=== PATIENT | female | born 1965 | race Caucasian/White ===

== ENCOUNTER 2018-06-27 02:11 | Emergency (ER) | payer OTHER ==
[~2018-06-27] VITALS: Ht 154.9 cm; Wt 61.2 kg
[2018-06-27] MEDS ORDERED: NEOMY/POLYMYX B/HC OPHT DROP 7.5 ML BOTTLE ONE (02:51)
[2018-06-27] MEDS ORDERED: HYDROCODONE/APAP 10-325 MG TABLET ONE (02:55)
--- NOTE | 2018-06-27 02:56 | NUR ---
Pt. ambulated into ED w/ c/o 01/29 R ear pain, A/Ox4, no CARTER/F/C/N/V
[2018-06-27] MEDS ORDERED: NEOMY/POLYMYX B/HC OTIC SUSP 10 ML BOTTLE ONE (02:58)
[2018-06-27] MEDS ORDERED: HYDROCODONE/APAP 10-325 MG TABLET PO ONE (03:00)
[2018-06-27] MEDS ORDERED: NEOMY/POLYMYX B/HC OTIC SUSP 10 ML BOTTLE OT ONE (03:00)
--- NOTE | 2018-06-27 03:57 | NUR ---
Patient discharged to home in stable conditon. Written and verbal after care instructions given. Patient verbalizes understanding of instructions. Pt. d/c per MD orders w/ prescriptions, d/c papers signed, all belongings w/ pt, ambulated out of ED w/ steady gait, no acute distress,
== END 2018-06-27 03:58 | disposition home or self-care (01) ==
LOC: ER 02:17
DX: H66.91 Otitis media, unspecified, right ear (principal); H60.91 Unspecified otitis externa, right ear; Z88.1 Allergy status to other antibiotic agents
CPT/HCPCS: A4663

== ENCOUNTER 2019-08-03 17:23 | Emergency (ER) | payer OTHER ==
[~2019-08-03] VITALS: Ht 165.1 cm; Wt 61.2 kg
--- NOTE | 2019-08-03 17:40 | NUR ---
Pt ambulated to ER with steady gait crying and c/o Right abdominal pain . Pt states its a new onset of pain. A/Ox4, no N/V present.
[2019-08-03] MEDS ORDERED: KETOROLAC TROMETHAMINE 30 MG INJ ONE (18:05)
[2019-08-03 18:14] LABS: BASOPHILS # (AUTO) 0.1 K/uL (0.0-8.0); BASOPHILS % (AUTO) 0.6 % (0.0-2.0); EOSINOPHILS # (AUTO) 0.1 K/uL (0.0-0.7); EOSINOPHILS % (AUTO) 0.3 % (0.0-7.0); HEMATOCRIT 40.5 % (31.2-41.9); HEMOGLOBIN 13.5 g/dL (10.9-14.3); LYMPHOCYTES # (AUTO) 1.2 K/uL (20.0-40.0); LYMPHOCYTES % (AUTO) 7.5 % (20.5-51.5); MEAN CORPUSCULAR HEMOGLOBIN 30.3 uug (24.7-32.8); MEAN CORPUSCULAR HGB CONC 33 g/dL (32.3-35.6); MEAN CORPUSCULAR VOLUME 91.2 fL (75.5-95.3); MONOCYTES # (AUTO) 0.8 K/uL (2.0-10.0); MONOCYTES % (AUTO) 5.2 % (0.0-11.0); NEUTROPHILS # (AUTO) 13.8 K/uL (1.8-8.9); NEUTROPHILS % (AUTO) 86.4 % (38.5-71.5); PLATELET COUNT (AUTO) 178 K/uL (179-408); RED BLOOD CELL COUNT(AUTO) 4.44 MIL/uL (3.63-4.92)
[2019-08-03] MEDS ORDERED: KETOROLAC TROMETHAMINE 30 MG INJ IVP ONE (18:15)
--- NOTE | 2019-08-03 18:30 | NUR ---
Pt is laying on her side comfortably with friend at bedside , states pain level is a lot worse now after pain med given.
[2019-08-03 18:34] LABS: CREATININE 1.1 mg/dL (0.6-1.3); POTASSIUM 4.2 mmol/L (3.5-5.1)
[2019-08-03] MEDS ORDERED: ONDANSETRON 4 MG/2 ML VIAL ONE (18:41)
[2019-08-03] MEDS ORDERED: HYDROMORPHONE 1 MG/1 ML DISP.SYRIN ONE ×2 (18:42→20:34)
[2019-08-03 18:45] LABS: *BILIRUBIN,URIN NEGATIVE (NEGATIVE); *CLARITY,URINE CLEAR (CLEAR); *COLOR,URINE YELLOW (YELLOW); *KETONES,URINE NEGATIVE (NEGATIVE); *UROBILINOGEN,URINE 0.2 E.U./dl (NORMAL); LEUKOCYTE ESTERASE ,URINE NEGATIVE (NEGATIVE); NITRITE, URINE NEGATIVE (NEGATIVE); PH,URINE 7.5 (5.0-8.0); UGLUCOSE NEGATIVE (NEGATIVE)
[2019-08-03] MEDS ORDERED: ONDANSETRON 4 MG/2 ML VIAL IV ONE (18:45)
[2019-08-03] MEDS ORDERED: HYDROMORPHONE 1 MG/1 ML DISP.SYRIN IV ONE ×2 (18:45→20:30)
[2019-08-03] MEDS ORDERED: IV NORMAL SALINE 1000 ML BAG IV ONE (18:45)
[2019-08-03 18:46] LABS: *BLOOD, URINE SMALL (NEGATIVE); *URINE HCG, QUAL NEGATIVE (NEGATIVE); BACTERIA,URINE NONE SEEN /HPF (NONE SEEN); RBC,URINE 0-3 /HPF (0-3); SQUAMOUS EPITHELIAL CELL,UR FEW /HPF (NONE SEEN); WBC,URINE 0-3 /HPF (0-3)
[2019-08-03 18:59] LABS: BILIRUBIN,DIRECT 0.1 mg/dL (0.0-0.2); BILIRUBIN,TOTAL 0.4 mg/dL (0.2-1.0); TOTAL PROTEIN, SERUM 7.8 g/dL (6.4-8.2)
--- NOTE | 2019-08-03 19:28 | NUR ---
Assumed care of pt at this time. Pt is resting in bed. States she feels better after pain medication.
[2019-08-03] MEDS ORDERED: IV NORMAL SALINE 250 ML IV ONE (20:28)
[2019-08-03] MEDS ORDERED: SWABABLE VALVE TRANSFER SET EA MC ONE (20:28)
[2019-08-03] MEDS ORDERED: IOHEXOL 300MG/ML 100 ML INFUS..BTL ONE (20:28)
--- NOTE | 2019-08-03 20:41 | NUR ---
Pain medication administered. Ultrasound done. Pt went down to radiology dept for CT scan. Pt signed consent for contrast.
--- NOTE | 2019-08-03 22:40 | NUR ---
Received call from Cecilia ([facility]). Pt to be admitted to [facility]. Pending transfer information.
--- NOTE | 2019-08-03 22:46 | NUR ---
[place] [facility] [place]
--- NOTE | 2019-08-04 00:28 | NUR ---
[facility] [employer] from [facility] called with transfer info. Patient will be going to [facility] room 319A. Call for report # . 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
--- NOTE | 2019-08-04 00:47 | NUR ---
Report given to SUSHIL Howard @ [facility]. Pt signed transfer acknowledgment form. ETA for transport 0115.
--- NOTE | 2019-08-04 01:22 | NUR ---
[facility] here to transport pt to [facility]. Report given to Shila Schuster, EDMAR.
== END 2019-08-04 01:30 | disposition short-term general hospital (02) ==
LOC: ER 17:24
DX: N13.9 Obstructive and reflux uropathy, unspecified (principal); N20.0 Calculus of kidney; N23 Unspecified renal colic; Z88.1 Allergy status to other antibiotic agents
CPT/HCPCS: 36415; 71045; 74177; 76705; 80048; 80076; 81000; 81001; 83690; 84484; 84703; 85025; 93005; 96374; 96375; 96376; 99285; J1170 ×2; J1885; J2405; Q9967; 70030-TC; A4663; J7030; J7050